=== PATIENT | male | born 2005 | race Two or more races ===

== ENCOUNTER 2024-07-25 01:08 | Emergency (ER) | payer BC | END 2024-07-25 01:50 | disposition home or self-care (01) | LOC: MW.ED 01:08 | DX: H66.91 Otitis media, unspecified, right ear (principal); Z79.899 Other long term (current) drug therapy | CPT/HCPCS: 99282 ==

== ENCOUNTER 2025-02-05 14:22 | Emergency (ER) | payer OTHER, BC ==
[2025-02-05] MEDS: Diphtheria,Pertussis(Acell),Tetanus Vaccine 0.5 ML Syringe IM ONE (15:05)
== END 2025-02-05 15:11 | disposition home or self-care (01) ==
LOC: MW.ED 14:22
DX: S61.011A Laceration without foreign body of right thumb without damage to nail, initial encounter (principal); Z23 Encounter for immunization; W26.8XXA Contact with other sharp object(s), not elsewhere classified, initial encounter
CPT/HCPCS: 12002; 90471; 90715; 99282-25; 99283